=== PATIENT | male | born 1975 | race Caucasian/White ===

== ENCOUNTER 2018-10-30 22:05 | Emergency (ER) | payer OTHER ==
[~2018-10-30] VITALS: Ht 180.3 cm; Wt 77.1 kg
[2018-10-30] MEDS ORDERED: cloNIDine 0.1 MG (CATAPRES) TAB PO ONE (22:30)
[2018-10-30] MEDS ORDERED: LORazepam INJ 2 MG/ML (ATIVAN) VIAL IVP PRN (22:30)
--- NOTE | 2018-10-30 22:34 | ED Neurological Problem ---
General Chief Complaint: Neurological Problems Stated Complaint: SEIZURE Source: patient Exam Limitations: no limitations History of Present Illness Date Seen by Provider: Oct 30, 2018 Time Seen by Provider: 22:26 Initial Comments Patient is an inmate. He had a witnessed tonic-clonic seizure lasting less than 5 minutes at skilled nursing. He was postictal afterwards. He sustained no injury. He was brought here by ambulance for evaluation. Patient takes Keppra 500 mg twice a day for his seizures. He also has a history of a intracranial aneurysm. He complains of a headache. He states he is compliant with his medications. Allergies and Home Medications Allergies Coded Allergies: trazodone (Verified Allergy, Unknown, arrythmia, 10/30/18) Home Medications Atenolol 100 Mg Tablet, DAILY, (Reported) Hydrochlorothiazide 25 Mg Tab, DAILY, (Reported) Levetiracetam 500 Mg Tablet, BID, (Reported) Lisinopril 20 Mg Tablet, DAILY, (Reported) Pravastatin Sodium 10 Mg Tablet, DAILY, (Reported) Patient Home Medication List Home Medication List Reviewed: Yes Review of Systems Review of Systems Constitutional: No fever; malaise Eyes: No Symptoms Reported Ears, Nose, Mouth, Throat: no symptoms reported Respiratory: no symptoms reported Cardiovascular: no symptoms reported Gastrointestinal: no symptoms reported Musculoskeletal: no symptoms reported Psychiatric/Neurological: Headache, Tonic Clonic Seizures All Other Systems Reviewed Negative Unless Noted: Yes Past Hkfjwcn-Nlvbqg-Ebcknj Hx Patient Social History Alcohol Use: Denies Use Smoking Status: Former Smoker Recent Foreign Travel: No Contact w/Someone Who Travel: No Past Medical History Hypertension Seizure Disorder Physical Exam Vital Signs Vital Signs - First Documented 10/30/18 22:21 Temp 97.8 Pulse 94 Resp 16 B/P (MAP) 151/106 (121) Pulse Ox 96 O2 Delivery Room Air Capillary Refill : Height, Weight, BMI Height: '" Weight: lbs. oz. kg; BMI Method: General Appearance: WD/WN, no apparent distress HEENT: PERRL/EOMI, pharynx normal, other (normocephalic atraumatic) Neck: non-tender, supple Respiratory: lungs clear, normal breath sounds Cardiovascular: regular rate, rhythm, no edema Gastrointestinal: non tender, soft Extremities: normal range of motion, normal inspection Neurologic/Psychiatric: fern picker II-XII nml as tested, no motor/sensory deficits, alert, normal mood/affect, oriented x 3 Crainal Nerves: normal hearing, normal speech, PERRL Coordination/Gait: normal gait Motor/Sensory: no motor deficit, no sensory deficit Skin: normal color, warm/dry Progress/Results/Core Measures Results/Orders My Orders Orders - TODD FAIR MD Lorazepam Injection (Ativan Injection) (10/30/18 22:30) Ct Head Wo (10/30/18 22:25) Clonidine Tablet (Catapres Tablet) (10/30/18 22:30) Medications Given in ED Current Medications Medications Dose Ordered Sig/Yanet Route Start Time Stop Time Status Last Admin Dose Admin Clonidine HCl 0.1 mg ONCE ONCE PO 10/30/18 22:30 10/30/18 22:31 DC 10/30/18 22:34 0.1 MG Lorazepam 1 mg ONCE PRN IVP 10/30/18 22:30 10/30/18 22:35 0.501 MG Vital Signs/I&O 10/30/18 10/30/18 22:21 23:00 Temp 97.8 Pulse 94 62 Resp 16 16 B/P (MAP) 151/106 (121) 124/90 (101) Pulse Ox 96 97 O2 Delivery Room Air Room Air Progress Progress Note : Time: 23:[address] scan is negative. Patient now relaxed and comfortable. Blood pressure down. No seizure activity in the ER. We'll increase Keppra to 1000 mg twice a day. Stable for discharge back to law enforcement. Departure Impression Primary Impression: Seizures Disposition: 21 DIS/XFER COURT/[employer] Condition: Stable Departure-Patient Inst. Decision time for Depature: 23:41 Referrals: NO,LOCAL PHYSICIAN (PCP) Primary Care Physician Add. Discharge Instructions: Increase Keppra to two 500 mg tablets (1000 mg) twice daily. Arrange for outpatient neurology follow-up as soon as possible. Continue other medicines. All discharge instructions reviewed with patient and/or family. Voiced understanding. TODD FAIR MD Oct 30, 2018 22:34
[2018-10-30 23:00] VITALS: BP 124/90
[2018-10-30] MEDS ORDERED: LISI20TA (23:25)
[2018-10-30] MEDS ORDERED: HCT25T (23:25)
[2018-10-30] MEDS ORDERED: PRAV10TA23 (23:25)
[2018-10-30] MEDS ORDERED: ATEN100T (23:25)
[2018-10-30] MEDS ORDERED: LEVE500T19 (23:25)
[2018-10-30] MEDS ORDERED: LEVETIRACETAM 500 MG (KEPPRA) TAB PO ONE (23:45)
[2018-10-31 00:44] VITALS: BP 125/88
--- NOTE | 2018-10-31 07:58 | Diagnostic Imaging Report ---
PROCEDURE: CT head without contrast. TECHNIQUE: Multiple contiguous axial images were obtained through the brain without the use of intravenous contrast. INDICATION: Seizure and fall. FINDINGS: There are no CT findings of acute intracranial hemorrhage. There is no intracranial mass effect or shift. There is no hydrocephalus. There is no abnormal extra-axial fluid collection. Oates-white matter differentiation appear maintained. There is no abnormal hypodensity evident within the basal ganglia or within the rea. The posterior fossa demonstrates no acute process. The mastoid air cells are clear. The visualized paranasal sinuses are clear. Orbital contents unremarkable. There is no acute calvarial abnormality. IMPRESSION: 1. No CT evidence of an acute intracranial abnormality. Dictated by: Dictated on workstation # [id number]
== END 2018-10-31 00:12 ==
LOC: ER FS 22:08
DX: G40.909 Epilepsy, unspecified, not intractable, without status epilepticus (principal); I10 Essential (primary) hypertension; Z88.8 Allergy status to other drugs, medicaments and biological substances; Z86.79 Personal history of other diseases of the circulatory system; Z87.891 Personal history of nicotine dependence
CPT/HCPCS: 70450

== ENCOUNTER 2018-12-22 09:31 | Emergency (ER) | payer OTHER ==
[~2018-12-22] VITALS: Ht 180.3 cm; Wt 77.1 kg
[~2018-12-22 09:31] MED LIST: ATEN100T; HCT25T; LEVE500T19; LISI20TA; PRAV10TA23
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
[2018-12-22] MEDS ORDERED: LIDOCAINE 1% INJ 20 ML 20 ML VIAL INJ ONE (09:45)
[2018-12-22] MEDS ORDERED: TETANUS,DIPTH,PERTUSS P/F (BOOSTRIX) 0.5 ML VIAL IM ONE (09:45)
[2018-12-22] MEDS ORDERED: TETRACAINE 0.5% OPHTH SOLN 4 ML BTL (SINGLE DOSE ONLY) ONE (10:13)
[2018-12-22] MEDS ORDERED: FLUORESCEIN (FLUOR-I-STRIPS) 1 MG STRP ONE (10:13)
[2018-12-22] MEDS ORDERED: IBUP-1780 PO (10:29)
[2018-12-22] MEDS ORDERED: IBUPROFEN 800 MG (MOTRIN) TAB PO ONE (10:30)
[2018-12-22] MEDS ORDERED: HYDROcodone/APAP 7.5 MG/325 MG (LORTAB, LORCET PLUS) TABLET PO ONE (10:30)
[2018-12-22 10:39] VITALS: BP 126/94
== END 2018-12-22 11:01 | disposition home or self-care (01) ==
LOC: EDUNIT# 09:31 → ER FS 09:33
DX: S01.81XA Laceration without foreign body of other part of head, initial encounter (principal); H11.31 Conjunctival hemorrhage, right eye; I25.2 Old myocardial infarction; G40.909 Epilepsy, unspecified, not intractable, without status epilepticus; Z23 Encounter for immunization; Z88.8 Allergy status to other drugs, medicaments and biological substances; W22.09XA Striking against other stationary object, initial encounter
CPT/HCPCS: 12011; 90715